=== PATIENT | female | born 1970 | race Caucasian/White ===

== ENCOUNTER 2021-01-11 23:25 | Emergency (ER) | payer OTHER ==
[2021-01-11 23:57] LABS: BILIRUBIN NEGATIVE (NEGATIVE); BLOOD NEGATIVE Ery/uL (NEGATIVE); CLARITY CLEAR (CLEAR); COLOR YELLOW (YELLOW); GLUCOSE (U) NORMAL (NORMAL); LEUKOCYTES TRACE Leu/uL (NEGATIVE); NITRITE NEGATIVE (NEGATIVE); PROTEIN NEGATIVE (NEGATIVE); SPECIFIC GRAVITY 1.025 (1.001-1.030); UROBILINOGEN 0.2 mg/dL (0.2-1.0); pH 6.5 (5.0-9.0)
[2021-01-12 00:04] LABS: AMPHETAMINES NEGATIVE (NEGATIVE); BARBITURATES NEGATIVE (NEGATIVE); ECSTASY (MDMA) NEGATIVE (NEGATIVE); MARIJUANA (THC) POSITIVE (NEGATIVE); METHADONE NEGATIVE (NEGATIVE); OPIATES NEGATIVE (NEGATIVE); OXYCODONE NEGATIVE (NEGATIVE)
[2021-01-12 00:06] LABS: BACTERIA 1+
[2021-01-12 01:22] LABS: BASOPHIL 0.3 % (0-2); EOSINOPHIL 0.2 % (0-5); HCT 41.5 % (37.0-47.0); HGB 13.9 g/dl (12.5-16.0); LYMPHOCYTE 14.3 % (15-48); MCH 30.5 pg (25.0-31.0); MCHC 33.5 g/dL (32.0-36.0); MCV 91.2 fL (78.0-100.0); MONOCYTE 3.1 % (0-12); MPV 9.9 fL (6.0-9.5); NEUTROPHIL 81.6 % (41-80); NRBC 0; PLT 324 K/uL (150-400); RBC 4.55 M/uL (4.20-5.40); RDW 12.2 % (11.5-14.0); WBC 15.2 K/uL (4.0-10.5)
[2021-01-12 01:50] LABS: ALBUMIN 3.9 g/dL (3.4-5.0); ALKALINE PHOSHATASE 121 U/L (46-116); ALT 32 U/L (14-59); AST 25 U/L (15-37); BILIRUBIN - TOTAL 0.3 mg/dL (0.2-1.0); BUN 15 mg/dL (7-18); BUN/CREAT RATIO (CALC) 15.8 RATIO; CHLORIDE 100 mmol/L (98-107); CO2 (BICARBONATE) 26 mmol/L (21-32); CREATININE 0.95 mg/dL (0.51-0.95); GLOBULIN (CALCULATION) 3.8 g/dL; GLUCOSE 228 mg/dL (74-106); TOTAL PROTEIN 7.7 g/dL (6.4-8.2)
[2021-01-12] MEDS ORDERED: EPINEPHRIN0.15 MG/01 IM (04:44)
[2021-01-12] MEDS ORDERED: PREDNISONE 20MG20 MG PO (04:44)
== END 2021-01-12 04:56 | disposition home or self-care (01) ==
LOC: FER 23:25
PROVIDERS: Emergency Medicine
DX: T78.1XXA Other adverse food reactions, not elsewhere classified, initial encounter (principal); R06.02 Shortness of breath; R00.0 Tachycardia, unspecified; I10 Essential (primary) hypertension; K21.9 Gastro-esophageal reflux disease without esophagitis; Z90.49 Acquired absence of other specified parts of digestive tract; Z90.710 Acquired absence of both cervix and uterus; Z79.899 Other long term (current) drug therapy; Z88.0 Allergy status to penicillin; Z88.8 Allergy status to other drugs, medicaments and biological substances; X58.XXXA Exposure to other specified factors, initial encounter
CPT/HCPCS: 36415; 70450; 80053; 80305; 81001; 85025; 93005; G0480; J1200; J2060; J2550; J2930; J7030; J7040

== ENCOUNTER 2021-02-08 11:18 | Emergency (ER) | payer OTHER ==
[~2021-02-08 11:18] MED LIST: EPINEPHRIN0.15 MG/01 IM; PREDNISONE 20MG20 MG PO
[2021-02-08] MEDS ORDERED: PREDNISONE20 MG PO (15:07)
[2021-02-08] MEDS ORDERED: ZYRTEC10 M3 PO (15:09)
[2021-02-08] MEDS ORDERED: PEPCID AC20 MG PO (15:09)
[2021-02-08] MEDS ORDERED: AUVI-Q0.1 MG/0.1 IM (15:13)
== END 2021-02-08 15:37 | disposition home or self-care (01) ==
LOC: FER 11:18
DX: R22.1 Localized swelling, mass and lump, neck (principal); T50.B95A Adverse effect of other viral vaccines, initial encounter; I10 Essential (primary) hypertension; Z88.0 Allergy status to penicillin; Z88.8 Allergy status to other drugs, medicaments and biological substances; Z79.899 Other long term (current) drug therapy
CPT/HCPCS: J1200; J2930

== ENCOUNTER 2021-08-11 08:23 | Emergency (ER) | payer OTHER ==
[~2021-08-11 08:23] MED LIST changes: +AUVI-Q0.1 MG/0.1 IM; +PEPCID AC20 MG PO; +PREDNISONE20 MG PO; +ZYRTEC10 M3 PO
[2021-08-11 09:19] LABS: BASOPHIL 0.4 % (0-2); EOSINOPHIL 0.9 % (0-5); HCT 42.9 % (37.0-47.0); LYMPHOCYTE 13.4 % (15-48); MCH 29.7 pg (25.0-31.0); MCHC 32.6 g/dL (32.0-36.0); MCV 91.1 fL (78.0-100.0); MONOCYTE 7.5 % (0-12); MPV 10.1 fL (6.0-9.5); NEUTROPHIL 77.4 % (41-80); NRBC 0; PLT 235 K/uL (150-400); RBC 4.71 M/uL (4.20-5.40); RDW 12.7 % (11.5-14.0); WBC 14.2 K/uL (4.0-10.5)
[2021-08-11 09:21] LABS: BILIRUBIN NEGATIVE (NEGATIVE); BLOOD 3+ Ery/uL (NEGATIVE); COLOR YELLOW (YELLOW); GLUCOSE (U) NORMAL (NORMAL); LEUKOCYTES 3+ Leu/uL (NEGATIVE); NITRITE POSITIVE (NEGATIVE); PROTEIN 2+ mg/dL (NEGATIVE); SPECIFIC GRAVITY 1.025 (1.001-1.030); UROBILINOGEN 0.2 mg/dL (0.2-1.0)
[2021-08-11 09:30] LABS: CLARITY CLOUDY (CLEAR)
[2021-08-11 09:31] LABS: ALBUMIN 4.2 g/dL (3.4-5.0); BILIRUBIN - TOTAL 0.6 mg/dL (0.2-1.0); BUN/CREAT RATIO (CALC) 12.2 RATIO; CREATININE 0.9 mg/dL (0.51-0.95); GLOBULIN (CALCULATION) 3.6 g/dL; POTASSIUM 3.9 mmol/L (3.5-5.1); TOTAL PROTEIN 7.8 g/dL (6.4-8.2)
[2021-08-11 09:33] LABS: URINARY WBC TNTC
[2021-08-11 09:35] LABS: BACTERIA 1+; RENAL EPITHELIAL CELLS RARE; SQUAMOUS EPITHELIAL CELLS RARE
[2021-08-11] MEDS ORDERED: PHENERGAN25 M1 PO (10:49)
[2021-08-11] MEDS ORDERED: LEVAQUIN500 MG PO (10:49)
[2021-08-11] MEDS ORDERED: PYRIDIUM200 MG PO (10:49)
== END 2021-08-11 11:34 | disposition home or self-care (01) ==
LOC: FER 08:23
PROVIDERS: Emergency Medicine
DX: N30.00 Acute cystitis without hematuria (principal); I10 Essential (primary) hypertension; Z88.0 Allergy status to penicillin; Z88.8 Allergy status to other drugs, medicaments and biological substances
CPT/HCPCS: 36415; 80053; 81001; 85025; 87076; 87088; 87186; J0696; J2550